=== PATIENT | female | born 1975 | race Caucasian/White ===

== ENCOUNTER 2017-10-01 00:15 | Emergency (ER) | payer MEDICARE, MEDICAID ==
[~2017-10-01] VITALS: Ht 162.6 cm; Wt 61.0 kg
[~2017-10-01 00:15] MED LIST: ALBU17AE26 IH; CARB100T50 PO; CARI350T PO; CLA10T PO; LORA1TAB PO; MONT10TA21 PO; ONDA4TAB9 PO; PANT-47 PO; PER10325T PO
[2017-10-01] MEDS ORDERED: ondansetron/PF 4mg/2ml inj IV ONE (02:10)
[2017-10-01] MEDS ORDERED: normal saline 1000ML IV soln IVB ONE (02:10)
[2017-10-01] MEDS ORDERED: ketorolac trometh. 30mg/ml inj. IV ONE (02:20)
[2017-10-01 03:25] VITALS: BP 112/64
== END 2017-10-01 03:35 | disposition home or self-care (01) ==
LOC: ER 00:15
DX: G43.909 Migraine, unspecified, not intractable, without status migrainosus (principal); J44.9 Chronic obstructive pulmonary disease, unspecified; K21.9 Gastro-esophageal reflux disease without esophagitis; G89.29 Other chronic pain; Z88.2 Allergy status to sulfonamides; Z88.8 Allergy status to other drugs, medicaments and biological substances
CPT/HCPCS: 96361; 96374; 96375; 99284; J1885; J2405; J7030

== ENCOUNTER 2017-12-31 17:00 | Emergency (ER) | payer MEDICARE, MEDICAID ==
[~2017-12-31] VITALS: Ht 162.6 cm; Wt 59.0 kg
[2017-12-31] MEDS ORDERED: LORazepam 2 mg/ml vial IM ONE (18:05)
[2017-12-31 18:27] VITALS: BP 104/79
== END 2017-12-31 18:29 | disposition home or self-care (01) ==
LOC: ER 17:01
DX: F41.9 Anxiety disorder, unspecified (principal); J44.9 Chronic obstructive pulmonary disease, unspecified; K21.9 Gastro-esophageal reflux disease without esophagitis; F32.9 Major depressive disorder, single episode, unspecified; G43.909 Migraine, unspecified, not intractable, without status migrainosus; G89.29 Other chronic pain; Z90.49 Acquired absence of other specified parts of digestive tract; Z88.2 Allergy status to sulfonamides; Z79.899 Other long term (current) drug therapy
CPT/HCPCS: 96372; 99284; J2060

== ENCOUNTER 2018-01-07 17:22 | Emergency (ER) | payer MEDICARE, MEDICAID ==
[~2018-01-07] VITALS: Ht 162.6 cm; Wt 64.1 kg
[2018-01-07 18:33] LABS: BASOPHILS % (AUTO) 0.3 % (0-1); EOSINOPHILS % (AUTO) 0.6 % (0-6); HEMATOCRIT 38.6 % (35.0-45.0); HEMOGLOBIN 13.1 g/dl (12.0-16.0); LYMPHOCYTES # (AUTO) 0.5 X10'3 (1.1-4.8); MEAN CORPUSCULAR HEMOGLOBIN 33.3 PG (27.0-31.0); MEAN CORPUSCULAR VOLUME 97.7 FL (78-98); MEAN PLATELET VOLUME 7.7 FL (7.4-10.4); MONOCYTES # (AUTO) 0.3 X10'3 (0-0.9); MONOCYTES % (AUTO) 3.5 % (2-12); NEUTROPHILS # (AUTO) 7.1 X10'3 (1.8-7.7); NEUTROPHILS % (AUTO) 89.6 % (42-75); PLATELET COUNT 345 X10'3 (140-440); RED BLOOD COUNT 3.95 X10'6 (4.20-5.60); WHITE BLOOD COUNT 7.9 X10'3 (4.5-11.0)
[2018-01-07 18:42] LABS: HCG SERUM QL NEGATIVE
[2018-01-07 18:53] LABS: ALANINE AMINOTRANSFERASE 264 U/L (12-78); ALBUMIN 3.1 G/DL (3.4-5.0); ALBUMIN/GLOBULIN RATIO 0.8 (1.1-1.5); ALKALINE PHOSPHATASE 399 IU/L (46-116); ANION GAP 11 (8-16); ASPARTATE AMINO TRANSFERASE 137 U/L (10-37); BILIRUBIN,TOTAL 0.4 MG/DL (0.1-1.0); BLOOD UREA NITROGEN 7 MG/DL (7-18); BUN/CREATININE RATIO 8.8 (6.6-38.0); CALCIUM 8.5 MG/DL (8.5-10.1); CHLORIDE 105 MMOL/L (99-107); GLUCOSE 111 MG/DL (70-104); MAGNESIUM 1.8 MG/DL (1.5-2.4); POTASSIUM 4.4 MMOL/L (3.5-5.1); SODIUM 140 MMOL/L (135-145); TOTAL CARBON DIOXIDE 24.1 MMOL/L (24-32); TOTAL PROTEIN 7.2 G/DL (6.4-8.2); eGFR 79 ML/MIN
[2018-01-07] MEDS ORDERED: LORA-269 PO (19:38)
[2018-01-07 19:40] LABS: CARBAMAZEPINE (TEGRETOL) 6.9 UG/ML (4.0-12.0)
[2018-01-07 19:41] VITALS: BP 121/54
== END 2018-01-07 19:53 | disposition home or self-care (01) ==
LOC: ER 17:22
DX: G40.909 Epilepsy, unspecified, not intractable, without status epilepticus (principal); G89.29 Other chronic pain; J44.9 Chronic obstructive pulmonary disease, unspecified; K21.9 Gastro-esophageal reflux disease without esophagitis; F32.9 Major depressive disorder, single episode, unspecified; F41.9 Anxiety disorder, unspecified; Z87.11 Personal history of peptic ulcer disease; Z90.49 Acquired absence of other specified parts of digestive tract; Z88.2 Allergy status to sulfonamides; Z88.8 Allergy status to other drugs, medicaments and biological substances; Z79.899 Other long term (current) drug therapy
CPT/HCPCS: 36415; 71045; 80053; 80156; 83735; 84703; 85025; 93005; 99285

== ENCOUNTER 2019-03-21 16:35 | Emergency (ER) | payer MEDICARE, MEDICAID ==
[~2019-03-21] VITALS: Ht 162.6 cm; Wt 75.0 kg
[~2019-03-21 16:35] MED LIST changes: +LORA-269 PO
--- NOTE | 2019-03-21 18:16 | NUR ---
RELIEVING RN FOR LUNCH, PT IS RESTING QUIETLY ON GURNEY, SOFT C COLLAR IN PLACE, PT IS GCS 16, ALERT AND ORIENTED, RESP EVEN AND UNLABORED, SKIN P/W/D, WAITING TO BE EVALUATED, FAMILY AT BEDSIDE,
--- NOTE | 2019-03-21 18:26 | NUR ---
PT AMB WITH STEADY GAIT TO RESTROOM
[2019-03-21] MEDS ORDERED: morphine 2 MG/ML inj. syringe IV ONE (19:00)
[2019-03-21] MEDS ORDERED: diphenhydrAMINE 50 mg/ml inj IV ONE (19:00)
[2019-03-21] MEDS ORDERED: normal saline 1000ML IV soln IVB ONE (20:10)
[2019-03-21 20:48] VITALS: BP 111/81
== END 2019-03-21 20:45 | disposition home or self-care (01) ==
LOC: ER 16:36
DX: R55 Syncope and collapse (principal); S00.83XA Contusion of other part of head, initial encounter; S19.9XXA Unspecified injury of neck, initial encounter; S49.92XA Unspecified injury of left shoulder and upper arm, initial encounter; G43.909 Migraine, unspecified, not intractable, without status migrainosus; J44.9 Chronic obstructive pulmonary disease, unspecified; K21.9 Gastro-esophageal reflux disease without esophagitis; G89.29 Other chronic pain; F41.9 Anxiety disorder, unspecified; F32.9 Major depressive disorder, single episode, unspecified; Z90.49 Acquired absence of other specified parts of digestive tract; Z87.11 Personal history of peptic ulcer disease; Z79.899 Other long term (current) drug therapy; Z88.2 Allergy status to sulfonamides; Z88.5 Allergy status to narcotic agent; Z88.8 Allergy status to other drugs, medicaments and biological substances; W01.198A Fall on same level from slipping, tripping and stumbling with subsequent striking against other object, initial encounter; Y93.89 Activity, other specified; Y92.89 Other specified places as the place of occurrence of the external cause; Y99.9 Unspecified external cause status
CPT/HCPCS: 70450; 72125; 73030; 93005; 96361; 96374; 96375; 99284; J1200; J2270; J7030